=== PATIENT | female | born 1955 | race Hispanic/Latino ===

== ENCOUNTER 2019-08-29 17:07 | Emergency (ER) | payer MEDICARE ==
[~2019-08-29] VITALS: Ht 157.5 cm; Wt 65.8 kg
--- NOTE | 2019-08-29 18:51 | Diagnostic Imaging Report ---
X-ray site and # of views HISTORY: Pain. COMPARISON: None available. FINDINGS: Bones: No acute displaced fracture. There is chronic fracture deformity of the first distal phalanx. Joints: There are mild degenerative changes of the talonavicular joint and first metatarsophalangeal joint. The joints are otherwise maintained. No joint effusion. Soft tissues: The soft tissues appear unremarkable. IMPRESSION: 1. No acute radiographic abnormality. Chronic fracture deformity of the first distal phalanx. 2. Mild degenerative changes of the first metatarsophalangeal joint and talonavicular joint. Signed by: Guerline Finney MD on 08/29/2019 6:48 PM
--- NOTE | 2019-08-29 19:18 | Emergency Department Note ---
History of Present Illnes History of Present Illness Chief Complaint: General Medicine Complaints History of Present Illness This is a 63 year old female . Historian: Patient Arrival Mode: Car Onset (how long ago): day(s) Radiation: Reports extremity Severity: mild Onset quality: gradual Duration (how long): day(s) (3) Timing of current episode: constant Progression: worsening Chronicity: new Context: Denies recent illness, Denies recent surgery, Denies recent immobilization, Denies recent travel, Denies trauma/injury, Denies new medications, Denies hx of DVT/PE, Denies non-compliance w/ medications, Denies other Relieving factors: immobilization, rest Exacerbating factors: movement Associated symptoms: Reports denies other symptoms Treatments prior to arrival: none Past Medical/Family History Physician Review I have reviewed the patient's past medical and family history. Any updates have been documented here. 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 SURVIVOR Past Surgical History: None Social History Smoking Cessation: Never Smoker Alcohol Use: None Any Illegal Drug Use: No Physically hurt or threatened: No Review of Systems Review of Systems Constitutional: Reports no symptoms EENTM: Reports no symptoms Cardiovascular: Reports no symptoms Respiratory: Reports no symptoms Gastrointestinal: Reports no symptoms Genitourinary: Reports no symptoms Musculoskeletal: Reports joint pain Integumentary: Reports no symptoms Neurological: Reports no symptoms Psychological: Reports no symptoms Endocrine: Reports no symptoms Hematological/Lymphatic: Reports no symptoms Physical Exam Related Data Allergies: Coded Allergies: codeine (Verified Allergy, Mild, 08/29/19) Triage Vital Signs Vital Signs Date Time Temp Pulse Resp B/P (MAP) Pulse Ox O2 Delivery O2 Flow Rate FiO2 08/29/19 17:29 97.9 84 18 153/78 98 Room Air Vital signs reviewed: Yes Physical Exam CONSTITUTIONAL Constitutional: Present well-developed, Present well-nourished HENT HENT: Present normocephalic, Present atraumatic, Present oropharynx clear/moist, Present nose normal HENT L/R: Present left ext ear normal, Present right ext ear normal EYES Eyes: Reports PERRL, Reports conjunctivae normal NECK Neck: Present ROM normal PULMONARY Pulmonary: Present effort normal, Present breath sounds normal CARDIOVASCULAR Cardiovascular: Present regular rhythm, Present heart sounds normal, Present capillary refill normal, Present normal rate GASTROINTESTINAL Abdominal: Present soft, Present nontender, Present bowel sounds normal GENITOURINARY Genitourinary: Present exam deferred SKIN Skin: Present warm, Present dry MUSCULOSKELETAL Musculoskeletal: Present tenderness (left foot 1st MTPJ ); Absent deformity NEUROLOGICAL Neurological: Present alert, Present oriented x 3, Present no gross motor or sensory deficits PSYCHOLOGICAL Psychological: Present mood/affect normal, Present judgement normal Results Imaging Imaging results reviewed: Yes Impressions [place] [address] Patient Name: DONNA MATHEWS MR #: [id number] : 1955 Age/Sex: 63/F Req #: [id number] Adm Physician: Ordered by: YONG HUTTON MD Report #: [id number] Location: ER Room/Bed: Procedure: [id number] DX/FOOT LEFT COMPLETE Exam Date: 08/29/19 Exam Time: 1800 REPORT STATUS: Signed X-ray site and # of views HISTORY: Pain. COMPARISON: None available. FINDINGS: Bones: No acute displaced fracture. There is chronic fracture deformity of the first distal phalanx. Joints: There are mild degenerative changes of the talonavicular joint and first metatarsophalangeal joint. The joints are otherwise maintained. No joint effusion. Soft tissues: The soft tissues appear unremarkable. IMPRESSION: 1. No acute radiographic abnormality. Chronic fracture deformity of the first distal phalanx. 2. Mild degenerative changes of the first metatarsophalangeal joint and talonavicular joint. Signed by: Erasmo Torres MD on 08/29/2019 6:48 PM Dictated By: ERASMO TORRES MD 47 Transcribed By: AJAY on 08/29/191847 COPY TO: YONG HUTTON MD~ Assessment & Plan Medical Decision Making MDM Diff dx : gout, fracture, sprain, contusion , osteomyelitis Assessment & Plan Final Impression: (1) Gout Depart Disposition: HOME, SELF-CARE Last Vital Signs Date Time Temp Pulse Resp B/P (MAP) Pulse Ox O2 Delivery O2 Flow Rate FiO2 08/29/19 17:29 97.9 84 18 153/78 98 Room Air CHARLI SANTIAGO DO Aug 29, 2019 19:18
== END 2019-08-29 19:23 | disposition home or self-care (01) ==
LOC: ER 17:51
DX: M10.9 Gout, unspecified (principal); I10 Essential (primary) hypertension; E11.9 Type 2 diabetes mellitus without complications; E78.5 Hyperlipidemia, unspecified; Z85.3 Personal history of malignant neoplasm of breast
CPT/HCPCS: 99283

== ENCOUNTER → 2022-05-08 | Outpatient (CLI) | payer MEDICARE | LOC: DX 07:57 | PROVIDERS: ATTEND Internal Medicine | DX: M81.0 Age-related osteoporosis without current pathological fracture (principal) | CPT/HCPCS: 77080 ==

== ENCOUNTER → 2023-03-19 | Outpatient (REF) | payer MEDICARE | LOC: MAMMO 08:17 | PROVIDERS: ATTEND Internal Medicine | DX: Z12.31 Encounter for screening mammogram for malignant neoplasm of breast (principal) | CPT/HCPCS: 77067 ==